=== PATIENT | male | born 1970 | race Caucasian/White ===

== ENCOUNTER 2016-04-22 11:50 | Emergency (ER) | payer SELFPAY ==
[~2016-04-22] VITALS: Wt 100.0 kg
[~2016-04-22 11:50] MED LIST: ALBU8.5H3 INH; AZIT250T94 PO; IBUP-1542 PO
== END 2016-04-22 15:46 | disposition left against medical advice (07) ==
LOC: FTE 11:50
DX: Z53.21 Procedure and treatment not carried out due to patient leaving prior to being seen by health care provider (principal)

== ENCOUNTER 2016-05-07 16:33 | Emergency (ER) | payer MEDICAID ==
[~2016-05-07] VITALS: Wt 103.6 kg
[2016-05-07] MEDS ORDERED: SOD CHLORIDE 0.9% 1,000 ML IV STA (20:15)
[2016-05-07] MEDS ORDERED: ONDANSETRON 4 MG INJ IV STA (20:15)
[2016-05-07] MEDS ORDERED: morphine 4 MG/ML VIAL IV STA (20:15)
[2016-05-07 20:43] VITALS: TEMP 98.4
[2016-05-07 21:08] LABS: ADD SCAN DIFF NO
--- NOTE | 2016-05-07 21:09 | RADRPT ---
PROCEDURE: Portable chest x-ray. CLINICAL INDICATION: Abdominal pain. TECHNIQUE: Portable AP view of the chest. COMPARISON: None. FINDINGS: No pulmonary edema or conolidation is identified. The cardiac silhouette is magnified. No pleural effusion is seen. There is no pneumothorax. There is no pneumoperitoneum. IMPRESSION: 1. No evidence of acute cardiopulmonary disease. 2. No pneumoperitoneum. RPTAT: HTAR .Christopher Villalta MD, MD Date Time Electronically viewed and signed by .Christopher Villalta MD, MD on 05/07/2016 21:08 .R/
[2016-05-07 21:11] LABS: BASOPHIL # 0.1 10^3/ul (0.0-0.1); BASOPHILS % 1.1 % (0.0-2.0); EOSINOPHILS # 0.8 10^3/ul (0.0-0.5); EOSINOPHILS % 9.2 % (0.0-7.0); HEMATOCRIT 43.3 % (42.0-52.0); LYMPHOCYTES # 2.4 10^3/ul (0.8-2.9); LYMPHOCYTES % 28.8 % (15.0-51.0); MEAN CORPUSCULAR HEMOGLOBIN 27.7 pg (29.0-33.0); MEAN CORPUSCULAR HGB CONC 34.6 g/dl (32.0-37.0); MEAN CORPUSCULAR VOLUME 79.9 fl (82.0-101.0); MONOCYTE # 0.6 10^3/ul (0.3-0.9); MONOCYTES % 6.9 % (0.0-11.0); NEUTROPHIL # 4.5 10^3/ul (1.6-7.5); NEUTROPHILS % 53.8 % (39.0-77.0); PLATELET COUNT 342 10^3/UL (140-415); RED BLOOD COUNT 5.42 10^6/ul (4.70-6.10); WHITE BLOOD COUNT 8.4 10^3/ul (4.8-10.8)
[2016-05-07 21:31] LABS: CHLORIDE 102 mmol/L (97-110); SODIUM 141 mmol/L (135-144)
[2016-05-07 21:32] LABS: POTASSIUM 3.3 mmol/L (3.5-5.1)
[2016-05-07 21:34] LABS: ALANINE AMINOTRANSFERASE 41 IU/L (13-69); ALBUMIN/GLOBULIN RATIO 1.37; ALKALINE PHOSPHATASE 98 IU/L (42-121); ANION GAP 14 (8-16); ASPARTATE AMINO TRANSFERASE 26 IU/L (15-46); BLOOD UREA NITROGEN 19 mg/dl (7-20); CALCIUM 9.1 mg/dl (8.4-10.2); CARBON DIOXIDE 28 mmol/L (21-31); CREATININE 0.72 mg/dl (0.61-1.24); GLUCOSE 132 mg/dl (70-220); TOTAL PROTEIN 6.9 g/dl (6.1-8.1)
[2016-05-07 21:51] LABS: TROPONIN-I < 0.012 ng/ml (0.00-0.12)
[2016-05-07 21:52] VITALS: BP 149/107; PULSE 78; RESP 18
[2016-05-07] MEDS ORDERED: IBUP-1542 PO (21:57)
[2016-05-07] MEDS ORDERED: HYD25 PO (21:58)
--- NOTE | 2016-05-07 22:19 | ERD ---
ER Documentation Chief Complaint Date/Time DATE: 05/07/16 TIME: 22:03 Chief Complaint LEFT UPPER BACK PAIN, LEFT CHESTWALL PAIN, LEFT ARM NUMBNESS, ONSET 1 DAY HPI 46-year-old man with a history of hypertension, diabetes, dyslipidemia presents with 3 days of back and chest pain on the left side with paresthesias to the left upper extremity. He denies headache or blurry vision, no weakness in his arms or legs, no slurred speech, no exertional chest pain. He states the pain in the left upper back and left chest is sharp but denies previous episodes. He denies cough, no fevers or chills, no weight loss, no calf or leg swelling. ROS All systems reviewed and are negative except as per history of present illness. Medications Home Meds Active Scripts Hydrochlorothiazide* (Hydrochlorothiazide*) 25 Mg Tab, 50 MG PO DAILY, #30 TAB Prov:KJ XAVIER MD 05/07/16 Ibuprofen* (Ibuprofen*) 600 Mg Tablet, 600 MG PO Q8 for PAIN AND/OR INFLAMMATION , #30 TAB Prov:KJ XAVIER MD 05/07/16 Ibuprofen* (Motrin*) 600 Mg Tab, 600 MG PO Q6, #30 TAB Prov:LAURA PITTMAN PA-C 10/25/15 Azithromycin* (Zithromax*) 250 Mg Tablet, 250 MG PO .ZPACK DIRECTED, #6 TAB TAKE 500 MG (2 TABS) THE FIRST DAY THEN 250 MG (1 TAB) DAYS 2-5 Prov:LAURA PITTMAN PA-C 10/25/15 Albuterol Sulfate* (Proair HFA*) 8.5 Gm Hfa.aer.ad, 2 PUFF INH Q4, #1 INHALER Prov:LAURA PITTMAN PA-C 10/25/15 Allergies Allergies: Coded Allergies: No Known Allergy (Unverified , 12/02/14) PMhx/Soc Hypertension, diabetes mellitus, dyslipidemia, asthma History of Surgery: Yes (OPEN APPY) Anesthesia Reaction: No Hx Neurological Disorder: No Hx Respiratory Disorders: No Hx Cardiac Disorders: Yes (HTN) Hx Psychiatric Problems: No Hx Miscellaneous Medical Probl: Yes (ASTHMA) Hx Alcohol Use: No Hx Substance Use: No Hx Tobacco Use: No Smoking Status: Never smoker FmHx Family History: diabetes Physical Exam Vitals Vital Signs Date Time Temp Pulse Resp B/P Pulse Ox O2 Delivery O2 Flow Rate FiO2 05/07/16 21:52 78 18 149/107 100 Room Air 05/07/16 20:43 98.4 72 20 154/99 98 Room Air 05/07/16 16:45 97.2 101 18 171/93 98 Physical Exam GENERAL: Well-developed, well-nourished, well-hydrated, in no apparent distress , looks nontoxic in appearance HEENT: Moist mucous membranes, pink conjunctiva, no cervical spine tenderness or step-off deformities, no goiter, no jaundice or icterus, extraocular movements intact without pain. No submandibular induration, and no pharyngeal erythema NEURO: Alert and oriented 3, cranial nerves II through XII intact bilaterally, pupils equal round reactive to light, no focal deficits or facial asymmetry, sensation intact distally Strength 5/5 in upper and lower extremities bilaterally CARDIAC: Regular rate and rhythm, no murmurs rubs or gallops LUNGS: Clear bilaterally no wheezing crackles or stridor ABDOMEN: Soft nontender, no guarding, no rigidity, no rebound, no psoas sign no obturator sign. Normoactive bowel sounds SKIN: Warm and dry to touch, no abrasions, contusions, or hematomas, no lacerations, no ecchymosis, no target lesions, and without ulcers EXTREMITIES: No clubbing cyanosis or edema, calves are bilaterally symmetrical, no Homans sign, no popliteal cord sign. Distal pulses equal and bilateral PSYCH: Normal affect without agitation or irritability Result Diagram: 05/07/16204905/07/162049 Results 24 hrs Laboratory Tests Test 05/07/16 20:50 Alanine Aminotransferase (ALT/SGPT) 41IU/L Albumin 4.0g/dl Albumin/Globulin Ratio 1.37 Alkaline Phosphatase 98IU/L Anion Gap 14 Aspartate Amino Transf (AST/SGOT) 26IU/L Basophils # 0.110^3/ul Basophils % 1.1% Blood Urea Nitrogen 19mg/dl Calcium Level 9.1mg/dl Carbon Dioxide Level 28mmol/L Chloride Level 102mmol/L Creatinine 0.72mg/dl Direct Bilirubin 0.00mg/dl Eosinophils # 0.810^3/ul Eosinophils % 9.2% Globulin 2.90g/dl Glucose Level 132mg/dl Hematocrit 43.3% Hemoglobin 15.0g/dl Indirect Bilirubin 0.0mg/dl Lipase 102U/L Lymphocytes # 2.410^3/ul Lymphocytes % 28.8% Mean Corpuscular Hemoglobin 27.7pg Mean Corpuscular Hemoglobin Concent 34.6g/dl Mean Corpuscular Volume 79.9fl Mean Platelet Volume 10.0fl Monocytes # 0.610^3/ul Monocytes % 6.9% Neutrophils # 4.510^3/ul Neutrophils % 53.8% Nucleated Red Blood Cells # 0.010^3/ul Nucleated Red Blood Cells % 0.0/100WBC Platelet Count 97362^3/UL Potassium Level 3.3mmol/L Red Blood Count 5.4210^6/ul Red Cell Distribution Width 13.0% Sodium Level 141mmol/L Total Bilirubin 0.0mg/dl Total Protein 6.9g/dl Troponin I < 0.012ng/ml White Blood Count 8.410^3/ul Current Medications Medications (Trade) Dose Ordered Sig/Pratik Route PRN Reason Start Time Stop Time Status Last Admin Dose Admin Sodium Chloride (NS) 1,000 ml @ 1,000 mls/hr Q1H STAT IV 05/07/16 20:15 05/07/16 21:14 DC 05/07/16 21:09 Morphine Sulfate (morphine) 4 mg ONCE STAT IV 05/07/16 20:15 05/07/16 20:16 DC 05/07/16 21:09 Ondansetron HCl (Zofran Inj) 4 mg ONCE STAT IV 05/07/16 20:15 05/07/16 20:16 DC 05/07/16 21:09 Clonidine (Catapres) 0.1 mg ONCE ONCE PO 05/07/16 22:00 05/07/16 22:01 DC 05/07/16 21:57 Procedures/MDM IV line was established patient was placed on shark biologist rhythm strip revealed a sinus rhythm at about 100 bpm with upright P and T waves. Patient was afebrile. EKG performed, read by me revealed a normal sinus rhythm at 97 bpm, normal axis , narrow QRS complex, no concerning ST elevations or depressions noted. No PA interval depression. One AP view of the chest performed, read by me reveals no acute infiltrates, normal mediastinum, sharp costophrenic and cardiac borders, no air under the diaphragm. Otherwise unremarkable chest x-ray. I administered 1 L normal saline intravenously, morphine 4 mg IV, Zofran 4 mg IV with good effect. Pain resolved. Patient has no complaints of paresthesias at this time. For continued hypertension I administered clonidine 0.1 mg p.o. with good effect. CBC and electrolytes are normal, liver function tests are normal, troponin was negative. Differential diagnoses considered, included but not limited to acute coronary syndrome, acute pericarditis, pulmonary embolism, aortic dissection, abdominal aortic aneurysm, sepsis, stroke, meningitis, encephalitis, pneumonia, appendicitis, cholecystitis, bowel obstruction, pyelonephritis, nephrolithiasis , cystitis, as well as metabolic, hematologic, and electrolyte abnormalities. As well as abscess, cellulitis, fractures, and dislocations. Patient feels much better at this time, and vital signs are normal, symptoms have improved. I did give strict instructions to return to the ED if symptoms continue or worsen, patient will otherwise follow-up with primary care physician. Patient understood instructions and agreed to plan. Departure Diagnosis: Primary Impression: Hypertension Hypertension type: essential hypertension Qualified Code: I10 - Essential hypertension Additional Impression: Chest pain Chest pain type: unspecified Qualified Code: R07.9 - Chest pain, unspecified type Condition: Good Patient Instructions: High Blood Pressure (Hypertension), Chest Pain, Uncertain Cause KJ XAVIER MD May 07, 2016 22:14
== END 2016-05-07 22:39 | disposition home or self-care (01) ==
LOC: E/R 16:33
DX: I10 Essential (primary) hypertension (principal); J45.909 Unspecified asthma, uncomplicated; E11.9 Type 2 diabetes mellitus without complications
CPT/HCPCS: 36415; 71010; 80053; 83690; 84484; 85025; 93005; 96374; 96375; J2270; J2405; J7030; Z7502; Z7610

== ENCOUNTER 2016-12-28 15:55 | Emergency (ER) | payer MEDICAID ==
[~2016-12-28] VITALS: Ht 172.7 cm; Wt 102.0 kg
[~2016-12-28 15:55] MED LIST changes: +HYDR25TA6 PO
[2016-12-28 15:58] VITALS: Ht 172.7 cm; Wt 102.0 kg
--- NOTE | 2016-12-28 16:49 | ERD ---
ER Documentation Chief Complaint Chief Complaint left toe nail possible infection HPI left great toe pain, pt is a DM reports thta he hit his toe on a pice of furniture 2 dats ago. now toe is red and painful, pain with AMB ROS All systems reviewed and are negative except as per history of present illness. Medications Home Meds Active Scripts Hydrochlorothiazide* (Hydrochlorothiazide*) 25 Mg Tab, 50 MG PO DAILY, #30 TAB Prov:KJ XAVIER MD 05/07/16 Ibuprofen* (Ibuprofen*) 600 Mg Tablet, 600 MG PO Q8 for PAIN AND/OR INFLAMMATION , #30 TAB Prov:KJ XAVIER MD 05/07/16 Ibuprofen* (Motrin*) 600 Mg Tab, 600 MG PO Q6, #30 TAB Prov:LAURA PITTMAN PA-C 10/25/15 Azithromycin* (Zithromax*) 250 Mg Tablet, 250 MG PO .ZPACK DIRECTED, #6 TAB TAKE 500 MG (2 TABS) THE FIRST DAY THEN 250 MG (1 TAB) DAYS 2-5 Prov:LAURA PITTMAN PA-C 10/25/15 Albuterol Sulfate* (Proair HFA*) 8.5 Gm Hfa.aer.ad, 2 PUFF INH Q4, #1 INHALER Prov:LAURA PITTMAN PA-C 10/25/15 Allergies Allergies: Coded Allergies: No Known Allergy (Unverified , 12/02/14) PMhx/Soc History of Surgery: Yes (OPEN APPY) Anesthesia Reaction: No Hx Neurological Disorder: No Hx Respiratory Disorders: No Hx Cardiac Disorders: Yes (HTN) Hx Psychiatric Problems: No Hx Miscellaneous Medical Probl: Yes (ASTHMA) Hx Alcohol Use: No Hx Substance Use: No Hx Tobacco Use: No Physical Exam Vitals Vital Signs Date Time Temp Pulse Resp B/P Pulse Ox O2 Delivery O2 Flow Rate FiO2 12/28/16 15:58 98.6 70 18 160/88 99 Physical Exam Const: Bahamian-speaking well nourished well appearing 46-year-old male in no acute distress Head: Eyes: ENT: Neck: . Resp: Cardio: Abd: Skin: No petechiae or rashes Back: Lower Extremity -left Skin: Left great toe presents with the nail trimmed short, purple and a half septic staining nail bed and scan, left lateral erythema, edema, and tenderness along skin fold, no discharge. No evidence of subungual hematoma Compartments: Soft Motor: Full active range of motion hip/knee/ankle/foot Sensation: Intact to light touch. Superior, inferior, lateral surfaces. Bones: [Nontender pelvis/knee/proximal tibia/ malleoli/foot Joints: No effusion or laxity Pulses/Perfusion: 2+ DP, Capillary refill < 2 seconds Neur: Awake and alert Psych: Normal Mood and Affect Results 24 hrs Current Medications Medications (Trade) Dose Ordered Sig/Pratik Route PRN Reason Start Time Stop Time Status Last Admin Dose Admin Ibuprofen (Motrin) 600 mg ONCE ONCE PO 12/28/16 17:00 12/28/16 17:01 DC 12/28/16 17:11 Procedures/MDM PROCEDURE: XR left foot. CLINICAL INDICATION: Post traumatic great toe pain TECHNIQUE: AP, lateral and oblique views of the left foot were obtained. COMPARISON: None. FINDINGS: Mineralization is within normal limits. No fracture or osseous lesion is identified. There is no evidence for dislocation. The metatarsophalangeal, interphalangeal, and mid tarsal joint spaces are preserved. The soft tissues are unremarkable. There is no evidence for a radiopaque foreign body. IMPRESSION: Unremarkable left foot series. Electronically viewed and signed by Herman Briseno Physician on 12/28/2016 17:54 This 46-year-old male patient presents to emergency department for evaluation of a left great toe injury 2 days ago, patient reports that he kicked a piece of furniture, he has treated at home with antiseptic purple in color that remains on the skin, patient reports that pain and swelling along lateral aspect of great toe started yesterday without discharge patient is concerned he is a diabetic, emergency room course includes history and physical exam, no obvious abscess or bleeding noted at this time. Radiographic images is unremarkable for fracture, dislocation or soft tissue abnormality plan to provide wound care, Neosporin to nail fold, bulky dressing, discharge patient home with dicloxacillin 500 mg every 6 hours 7 days, Neosporin, warm water foot soaks. Follow-up with primary care physician in 48 hours for wound reevaluation. Return to emergency department for increased redness, swelling, fever or chills. Patient is stable with no new complaints during ER course, clinically there is no current evidence to suggest Leigh, compartment syndrome , Perdomo-Daljit syndrome, fracture or any other emergent condition appearing to require further evaluation or hospitalization. I feel the patient is stable for discharge at this time. I have discussed results, examination findings, the treatment plan with the patient and family present prior to discharge. Indications for emergent reevaluation, side effects of medication were also discussed. All questions were answered. Patient verbalizes understanding and agrees with plan of care. Departure Diagnosis: Primary Impression: Perionychia of toe Laterality: left Qualified Code: L03.032 - Paronychia of toe of left foot Patient Instructions: Paronychia [facility] Additional Instructions: Thank you for for coming to [facility] for your care today. Please ask your nurse or provider if you have questions about your care today and do not leave until all your questions have been answered. Please use any medications given as directed and follow-up with your doctor (or the doctor you were referred to) in the next 2-3 days. If you do not have a primary care doctor you may follow up at the [facility] [place] (listed below). You may also use motrin and tylenol as needed for fever and/or pain unless instructed otherwise by your provider or nurse. Indications for more urgent follow-up have been discussed, but you may return to the Emergency Department at ANY time for any worrisome or worsening symptoms. If you have abdominal pain, please know that no test or exam you received is perfect and you should follow up within 8 hours for continued pain. If you had any imaging studies today, such as an X-Ray or CT Scan, these studies will be reviewed later by a radiologist. You will be called if there are important findings that were not identified today, so make sure the contact information you provided at registration is correct. If you received any narcotic pain control medicine today, such as Vicodin, Morphine or Dilaudid, your coordination and judgment may be affected for a number of hours. Please do not drive or operate heavy machinery, and you may want someone to assist you at home. If you were given a prescription for narcotic medication, be aware that it is very addictive- use sparingly and only if necessary. CHRISTINA RAMIRES Dec 28, 2016 16:49
[2016-12-28] MEDS ORDERED: IBUPROFEN 600 MG TAB PO ONE (17:00)
--- NOTE | 2016-12-28 17:55 | RADRPT ---
PROCEDURE: XR left foot. CLINICAL INDICATION: Post traumatic great toe pain TECHNIQUE: AP, lateral and oblique views of the left foot were obtained. COMPARISON: None. FINDINGS: Mineralization is within normal limits. No fracture or osseous lesion is identified. There is no e vidence for dislocation. The metatarsophalangeal, interphalangeal, and mid tarsal joint spaces are preserved. The soft tissues are unremarkable. There is no evidence for a radiopaque foreign body. IMPRESSION: Unremarkable left foot series. RPTAT:HJJR Physician Aurea Date Time Electronically viewed and signed by Physician Aurea on 12/28/2016 17:54 /
[2016-12-28] MEDS ORDERED: [UNRECOGNIZED DRUG - CODE] PO (18:23)
[2016-12-28] MEDS ORDERED: IBUP400T22 PO (18:24)
== END 2016-12-28 18:48 | disposition home or self-care (01) ==
LOC: FTE 15:55
DX: L03.032 Cellulitis of left toe (principal); I10 Essential (primary) hypertension; J45.909 Unspecified asthma, uncomplicated
CPT/HCPCS: 73630; Z7502; Z7610

== ENCOUNTER 2017-03-28 10:26 | Emergency (ER) | END 2017-03-28 14:10 | disposition home or self-care (01) ==

== ENCOUNTER 2018-07-01 14:10 | Inpatient (IN) | payer MEDICAID ==
[~2018-07-01] VITALS: Ht 170.2 cm; Wt 105.9 kg
[~2018-07-01 14:10] MED LIST changes: -ALBU8.5H3 INH; +ALBU8.5H8 INH; +AZIT250T PO; -AZIT250T94 PO; +IBUP-1544 PO; +IBUP-1561 PO; +OSEL75CA23 PO; +PRED20TA PO; +[UNRECOGNIZED DRUG - CODE] PO
--- NOTE | 2018-07-01 14:18 | ERD ---
ER Documentation Chief Complaint Chief Complaint aloc HPI The patient is a 48-year-old male, presenting to the ER because of altered level consciousness for more than 24hours. He was last seen normal about 2 days ago according to the family. He is currently taking amoxicillin for acute cystitis for the last few days. He is awake but very confused. The history is very limited due to his condition, mostly obtained from the EMS Past medical history: Diabetes mellitus, hypertension, dyslipidemia Past surgical history: Appendectomy ROS All systems reviewed and are negative except as per history of present illness. Medications Home Meds Reported Medications Amoxicillin* (Amoxil*) 500 Mg Tablet, 500 MG PO Q8, TAB 07/01/18 Aspirin* (Aspirin* Chew) 81 Mg Tab.chew, 81 MG PO DAILY, TAB.CHEW 07/01/18 Allergies Allergies: Coded Allergies: No Known Allergy (Unverified , 07/01/18) Physical Exam Vitals Vital Signs Date Temp Pulse Resp B/P (MAP) Pulse Ox O2 O2 Flow FiO2 Time Delivery Rate 07/01/18 100.5 98 17 156/103 100 Room Air 15:37 (120) 07/01/18 99.9 96 18 156/95 97 14:19 (115) Physical Exam Const: No acute distress. Head: Atraumatic. Eyes: Normal Conjunctiva. ENT: Normal External Ears, Nose and Mouth. Neck: Full range of motion. No meningismus. Resp: Clear to auscultation bilaterally. Cardio: Regular rate and rhythm. Abd: Soft, non distended, normal bowel sounds, moderate/diffuse ab dominal tenderness Skin: No petechiae or rashes. Back: No midline or flank tenderness. Ext: No cyanosis, or edema. Neur: Awake, only knows his name. Limited due to his condition Psych: Unable to perform due to his condition Result Diagram: 07/01/18 1435 07/01/18 1435 Results 24 hrs Laboratory Tests Test 07/01/18 14:24 07/01/18 14:33 07/01/18 14:35 07/01/18 15:22 Bedside Glucose 133 mg/dL POC Venous 1.7 mmol/L Lactate White Blood Count 19.3 10^3/ul Red Blood Count 5.75 10^6/ul Hemoglobin 15.4 g/dl Hematocrit 45.8 % Mean Corpuscular 79.7 fl Volume Mean Corpuscular 26.8 pg Hemoglobin Mean Corpuscular 33.6 g/dl Hemoglobin Concen t Red Cell 13.3 % Distribution Width Platelet Count 318 10^3/UL Mean Platelet 10.1 fl Volume Immature 0.600 % Granulocytes % Neutrophils % 89.2 % Lymphocytes % 4.1 % Monocytes % 5.4 % Eosinophils % 0.2 % Basophils % 0.5 % Nucleated Red 0.0 /100WBC Blood Cells % Immature 0.110 10^3/ul Granulocytes # Neutrophils # 17.2 10^3/ul Lymphocytes # 0.8 10^3/ul Monocytes # 1.1 10^3/ul Eosinophils # 0.0 10^3/ul Basophils # 0.1 10^3/ul Nucleated Red 0.0 10^3/ul Blood Cells # Prothrombin Time 12.3 Sec Prothrombin Time 1.0 Ratio INR International 0.90 Normalized Ratio Activated 28.9 Sec Partial Thrombopl ast Time Sodium Level 135 mmol/L Potassium Level 3.6 mmol/L Chloride Level 101 mmol/L Carbon Dioxide 23 mmol/L Level Anion Gap 11 Blood Urea 10 mg/dl Nitrogen Creatinine 0.56 mg/dl Est Glomerular > 60 mL/min Filtrat Rate mL/min Glucose Level 137 mg/dl Calcium Level 9.0 mg/dl Total Bilirubin 0.6 mg/dl Direct Bilirubin 0.00 mg/dl Indirect 0.6 mg/dl Bilirubin Aspartate Amino 22 IU/L Transf (AST/SGOT) Alanine 24 IU/L Aminotransferase (ALT/SGPT) Alkaline 112 IU/L Phosphatase Creatine Kinase 98 IU/L Troponin I < 0.012 ng/ml Total Protein 7.7 g/dl Albumin 4.2 g/dl Globulin 3.50 g/dl Albumin/Globulin 1.20 Ratio Lipase 125 U/L Ethyl Alcohol < 10.0 mg/dl Level Urine Color YELLOW Urine Clarity CLEAR Urine pH 7.0 Urine Specific 1.016 [place] Urine Ketones NEGATIVE mg/dL Urine Nitrite NEGATIVE mg/dL Urine Bilirubin NEGATIVE mg/dL Urine NEGATIVE mg/dL Urobilinogen Urine Leukocyte TRACE Raj/ul Esterase Urine Microscopic 1 /HPF RBC Urine Microscopic 4 /HPF WBC Urine Hemoglobin 1+ mg/dL Urine Glucose NEGATIVE mg/dL Urine Total 2+ mg/dl Protein Urine Opiates Negative Screen Urine Negative Barbiturates Urine Negative Amphetamines Screen Urine Negative Benzodiazepines Screen Urine Cocaine Negative Screen Urine Positive Cannabinoids Test 07/01/18 15:41 07/01/18 16:55 07/01/18 17:21 Bedside Urine pH 7.0 (LAB) Bedside Urine 3+ Protein (LAB) Bedside Urine Negative Glucose (UA) Bedside Urine Negative Ketones (LAB) Bedside Urine Trace-lysed Blood Bedside Urine Negative Nitrite (LAB) Bedside Urine Trace Leukocyte Esteras e (L Lactic Acid Level 1.5 mmol/L Ammonia 24 umol/l Hepatitis B Pending Surface Antigen Hepatitis B Core Pending Total Antibody Hepatitis C Pending Antibody Current Medications Medications Dose Sig/Pratik Start Time Status Last (Trade) Ordered Route PRN Stop Time Admin Dose Reason Admin Ketorolac 30 mg ONCE STAT 07/01/18 DC 07/01/18 Tromethamine IV 15:23 15:39 (Toradol) 07/01/18 15:30 Piperacillin 100 ml @ ONCE ONCE 07/01/18 DC 07/01/18 Sod/ 200 mls/hr IVPB 16:30 16:40 Tazobactam 07/01/18 16:59 Sod IV Flush 3 ml PER 07/01/18 (NS 3 ml) PROTOCOL IV 16:30 Ondansetron 4 mg Q6H PRN 07/01/18 HCl (Zofran IV 16:30 Inj) NAUSEA/VOMITI NG 650 mg Q6H PRN 07/01/18 Acetaminophen PO .PAIN 1-3 16:30 (Tylenol OR TEMP Tab) 1 tab Q6H PRN 07/01/18 Acetaminophen PO .PAIN 4-6 16:30 / Hydrocodone Bitart ([place] (5/325)) 150 ml @ Q24H IVPB 07/01/18 Levofloxacin/ 100 mls/hr 17:00 Dextrose Sodium 1,000 ml @ Q10H IV 07/01/18 Chloride 100 mls/hr 17:00 Labetalol 10 mg Q4H PRN 07/01/18 HCl IV sbp>160 17:00 (Labetalol) Procedures/[place] [id number] Radiology Main Line: [phone] DIAGNOSTIC IMAGING REPORT Patient: IWLLIAM HEAD : 1970 Age: 48 Sex: M MR #: [id number] DOS: 07/01/18 1420 Ordering MD: HAMIDA ATWOOD MD Location: E/R Room/Bed: PROCEDURE: CT Abdomen and Pelvis without contrast. CLINICAL INDICATION: Abdominal pain. TECHNIQUE: CT scan of the abdomen and pelvis without contrast was performed on a multidetector high-resolution CT scanner. The patient was scanned without intravenous contrast. Coronal and sagittal reformatted images were obtained from the axial source images. Images were reviewed on a high-resolution PACS workstation. One or more of the following dose reduction techniques were used: Automated exposure control, adjustment of the mA and/or kV according to patient size, use of iterative reconstruction technique. DICOM images are available. The total exam CTDI equals 22.48 mGy and the total exam DLP equals 1438.74 mGy- cm. COMPARISON: None available. FINDINGS: CT ABDOMEN: Visualized lung bases: No significant infiltrate or pleural/pericardial effusion. The heart size is normal. Liver: The liver is enlarged measuring 22 cm and demonstrates diffusely decreased attenuation. No evidence of solid hepatic mass or intrahepatic ductal dilatation. Gallbladder and bile ducts: Unremarkable. Spleen: Unremarkable. Pancreas: Unremarkable. No ductal dilatation, mass, or peripancreatic stranding. Adrenal glands: Unremarkable. Kidneys: No hydronephrosis, stones, or solid lesions seen. Vasculature: No abdominal aortic aneurysm. Negative IVC. Lymph nodes: No adenopathy. GI: There is no evidence of inflamed appendix. Negative terminal ileum and rectum. No evidence of obstruction. Negative sigmoid colon. Peritoneal cavity: There is a small fat-containing umbilical hernia. No free fluid or free air. CT PELVIS: : Normal appearing bladder, distal ureters and ureterovesiculal junctions. The pelvic organs are unremarkable. Peritoneal cavity: No free fluid or free air. Lymph nodes: No adenopathy. Osseous structures: No acute osseous injury. No lytic or blastic lesions. Other: There are small bilateral fat containing inguinal hernias. IMPRESSION: 1. No evidence of acute abdominopelvic inflammatory process, mass or lymphadenopathy. 2. Hepatomegaly and hepatic steatosis. 3. Minimal aortic atherosclerosis. 4. Small fat-containing umbilical and bilateral inguinal hernias. RPTAT: JJ .Lyle Gonzales MD, MD Date Time Electronically viewed and signed by .Lyle Gonzales MD, MD on 07/01/2018 15:19 .A/ CC: HAMIDA ATWOOD MD [id number] [place] [address] Radiology Main Line: [phone] DIAGNOSTIC IMAGING REPORT Patient: WILLIAM HEAD : 1970 Age: 48 Sex: M MR #: [id number] DOS: 07/01/18 1420 Ordering MD: HAMIDA ATWOOD MD Location: E/R Room/Bed: PROCEDURE: CT brain without contrast CLINICAL INDICATION: Sepsis. Head pain TECHNIQUE: CT of the brain without contrast was performed on a multidetector CT scanner, with multiplanar reformats. One or more of the following dose reduction techniques were used: Automated exposure control, adjustment in mA and / or kV according to patient size, use of iterative reconstructive technique. CTDIvol = 38 mGy; DLP = 634 mGy-cm. DICOM images are available. COMPARISON: None available FINDINGS: No acute intracranial hemorrhage is identified. No extra-axial fluid collection is seen. There is no mass effect. No midline shift is identified. The ventricles and sulci are within normal limits for size and configuration. The density of the brain appears unremarkable. Mason-white junctions are preserved. Calvarium and skull base are intact. Mastoid air cells and imaged paranasal sinuses grossly clear. IMPRESSION: No acute intracranial pathology identified. RPTAT: VV .Thierry Mccartney MD, MD Date Time Electronically viewed and signed by .Thierry Mccartney MD, MD on 07/01/2018 15:06 .O/ CC: HAMIDA ATWOOD MD [phone] [place] [address] Radiology Main Line: [phone] DIAGNOSTIC IMAGING REPORT Patient: WILLIAM HEAD : 1970 Age: 48 Sex: M MR #: [id number] DOS: 07/01/18 1420 Ordering MD: HAMIDA ATWOOD MD Location: E/R Room/Bed: PROCEDURE: Chest xray. CLINICAL INDICATION: Possible sepsis TECHNIQUE: A portable semiupright AP view of the chest was obtained. COMPARISON: None. FINDINGS: The cardiac silhouette is mildly enlarged. Lung volumes are low with associated bronchovascular crowding. No focal opacity, pleural effusion, or pneumothorax is identified. The skeletal structures and soft tissues are unremarkable. IMPRESSION: Mild cardiomegaly. Low lung volumes. RPTAT:PP .Bella Love MD, MD Date Time Electronically viewed and signed by .Bella Love MD, MD on 07/01/2018 14:54 .K/ CC: HAMIDA ATWOOD MD [phone] MEDICAL MAKING DECISION: The patient is a 48-year-old male, presenting with acute encephalopathy, acute abdominal pain of unclear etiology, acute leukocytosis, cannabinoid abuse. He was treated with Toradol 30 mg IV for his abdominal pain and Zosyn IV empirically The differential diagnoses considered include but are not limited to anxiety attack, panic attack, substance abuse, cholelithiasis, cholecystitis, choled ocholithiasis, cholangitis, pancreatitis, hepatitis, gastritis, peptic ulcer disease, gastric ulcer, appendicitis, cystitis, diverticulitis, partial small bowel obstruction. Departure Diagnosis: Primary Impression: Encephalopathy acute Additional Impressions: Abdominal pain Cannabis abuse Condition: Stable Comments I discussed the findings with the patient. I discussed the patient with Dr Green at 4:25 p , who was made aware of the lab, the treatment, the patient co ndition. The patient is admitted to [facility] Disclaimer: Inadvertent spelling and grammatical errors are likely due to EHR/dictation software use and do not reflect on the overall quality of patient care. Also, please note that the electronic time recorded on this note does not necessarily reflect the actual time of the patient encounter. HAMIDA ATWOOD MD Jul 01, 2018 14:18
[2018-07-01] MEDS ORDERED: AMOX500T PO (14:47)
[2018-07-01] MEDS ORDERED: ASPI-903 PO (14:47)
[2018-07-01] MEDS ORDERED: KETOROLAC 30 MG INJ IV STA (15:23)
[2018-07-01] MEDS ORDERED: PIPER-TAZO 3.375 GM IV (PMX) 100 ML IVPB ONE (16:30)
[2018-07-01] MEDS ORDERED: ONDANSETRON 4 MG INJ IV PRN (16:30)
[2018-07-01] MEDS ORDERED: NACL 0.9% 3 ML SYG IV SCH (16:30)
[2018-07-01] MEDS ORDERED: LABETALOL HCL 20MG INJ IV PRN (17:00)
--- NOTE | 2018-07-01 17:06 | HP ---
Date/Time of Note Date/Time of Note DATE: 07/01/18 TIME: 17:06 Assessment/Plan VTE Prophylaxis Pharmacological prophylaxis: other Lines/Catheters IV [facility] Saline Lock Assessment/Plan Hospital Course Patient is a male with a questionable past medical history of diabetes and elevated cholesterol who presents to [facility] brought in by family for altered mental status. According to EMS they arrived after 911 was called by patient's and patient was find altered and slightly arousable. Patient did not receive any new medical attention however when they placed a nasal trumpet in the ED, patient spontaneously woke up and was alert and oriented x4. Patient currently right now is able to tell me entire story however he does not know what he was altered for the past 2 days. Patient was able to say that for the past 3-4 days he has had suprapubic pain as well as difficulty urinating. Patient states that he would urinate a little bit and then it would clamp up. Patient states that this is never happened before. Patient states that at this time there was also a mild to moderate umbilical abdominal pain as well as a right flank and left flank pain but worse on the right. Currently patient states that this pain is still there however after getting a Bartholomew catheter placed in the ED patient's suprapubic pain has slightly resolved. Of note patient did take an old prescription of amoxicillin for the past day. Patient states that he has chronic headaches for many years and he has some lower extremity neuropathy that is also chronic however he is not taking any medications for his questionable diabetes or high cholesterol. Patient denies chest pain, shortness of breath, dizziness, blurry vision, nausea, vomiting. Objective Physical exam General: Patient is laying in bed and answers questions appropriately Mentation: Patient is alert and oriented 4, Head: Normocephalic atraumatic Eyes: EOMI, pupils reactive to light Neck: Supple, nontender, midline Respiratory: Clear to auscultation bilaterally Cardiovascular: regular rate, no obvious murmurs Gastrointestinal: Tender to palpation, worse in the suprapubic area and lower quadrants to palpation, bowel sounds heard. Neurological: Moves all extremities spontaneously Musculoskeletal: Moderate right flank pain as well as mild left flank pain Assessment and plan Urinary tract infection with possible pyelonephritis -UA in-house is not conclusive for UTI does show trace leukocytes however, patient was taking an oral antibiotic in the outpatient setting from an old prescription and therefore may be changing the results of the UA -Patient symptoms of suprapubic pain, urinary retention and other clinical symptoms point towards UTI cause with possible pyelonephritis -IV Levaquin -Normal saline Sepsis -Secondary to likely UTI and possible pyelonephritis -IV fluids -Blood cultures -Lactic acid 1.7 -IV antibiotic Abdominal pain with flank pain -Accompanied with flank pain as well, likely secondary to above UTI possible pyelonephritis -CT abdomen pelvis negative for acute intra-abdominal issues, may be sequelae f rom UTI and possible pyelonephritis -Patient does have an enlarged liver however does not show any issues with liver labs, hepatitis panel pending -If abdominal pain continues after treatment for pyelonephritis and UTI, will consider repeat imaging, however pain appears mild for now, continue IV ant ibiotics, IV fluids, Urinary retention -Likely secondary to above UTI Bartholomew catheter -We will attempt to remove in a day or 2. Acute encephalopathy -Likely secondary to above UTI and sepsis -Patient now alert and oriented x4 -CT head negative -MRI brain pending -Ammonia pending -Patient denies taking any drugs or alcohol, however cannabinoids is positive in his urine tox screen Questionable diabetes and high cholesterol -Patient states that he has been told that he has issues with this in the past, will get A1c as well as lipid panel Peripheral neuropathy -Patient has had this for many years, was told this was a complication from his diabetes, follow-up with A1c Chronic headaches -Patient has been struggling with this for many years, however patient's blood pressure is elevated, possibly blood pressure related however will need to control blood pressure and pain before attributing headaches to blood pressure -We will monitor for now -MRI pending -CT head negative for acute issues Aspirin use -Patient unknown why he started a baby aspirin, no history of WI or CVA Disposition -Patient's presentation is mildly abnormal however the clinical picture does point towards UTI versus pyelonephritis causing his altered mental status. Continue IV fluids and antibiotics for now and follow-up with MRI of the brain. Result Diagram: 07/01/18 1435 07/01/18 1435 Results 24hrs Laboratory Tests Test 07/01/18 14:24 07/01/18 14:33 07/01/18 14:35 07/01/18 15:22 Bedside Glucose 133 POC Venous Lactate 1.7 White Blood Count 19.3 H Red Blood Count 5.75 Hemoglobin 15.4 Hematocrit 45.8 Mean Corpuscular 79.7 L Volume Mean Corpuscular 26.8 L Hemoglobin Mean Corpuscular 33.6 Hemoglobin Concent Red Cell 13.3 Distribution Width Platelet Count 318 Mean Platelet 10.1 Volume Immature 0.600 H Granulocytes % Neutrophils % 89.2 H Lymphocytes % 4.1 L Monocytes % 5.4 Eosinophils % 0.2 Basophils % 0.5 Nucleated Red Blood 0.0 Cells % Immature 0.110 H Granulocytes # Neutrophils # 17.2 H Lymphocytes # 0.8 Monocytes # 1.1 H Eosinophils # 0.0 Basophils # 0.1 Nucleated Red Blood 0.0 Cells # Prothrombin Time 12.3 Prothrombin Time 1.0 Ratio INR International 0.90 Normalized Ratio Activated 28.9 Partial Thromboplas t Time Sodium Level 135 Potassium Level 3.6 Chloride Level 101 Carbon Dioxide 23 Level Anion Gap 11 Blood Urea Nitrogen 10 Creatinine 0.56 L Est Glomerular > 60 Filtrat Rate mL/min Glucose Level 137 Calcium Level 9.0 Total Bilirubin 0.6 Direct Bilirubin 0.00 Indirect Bilirubin 0.6 Aspartate Amino 22 Transf (AST/SGOT) Alanine 24 Aminotransferase (A LT/SGPT) Alkaline 112 Phosphatase Creatine Kinase 98 Troponin I < 0.012 Total Protein 7.7 Albumin 4.2 Globulin 3.50 H Albumin/Globulin 1.20 Ratio Lipase 125 Ethyl Alcohol Level < 10.0 H Urine Color YELLOW Urine Clarity CLEAR Urine pH 7.0 Urine Specific 1.016 [place] Urine Ketones NEGATIVE Urine Nitrite NEGATIVE Urine Bilirubin NEGATIVE Urine Urobilinogen NEGATIVE Urine Leukocyte TRACE A Esterase Urine Microscopic 1 RBC Urine Microscopic 4 WBC Urine Hemoglobin 1+ H Urine Glucose NEGATIVE Urine Total Protein 2+ H Urine Opiates Negative Screen Urine Barbiturates Negative Urine Amphetamines Negative Screen Urine Negative Benzodiazepines Screen Urine Cocaine Negative Screen Urine Cannabinoids Positive Test 07/01/18 15:41 Bedside Urine pH 7.0 (LAB) Bedside Urine 3+ H Protein (LAB) Bedside Urine Negative Glucose (UA) Bedside Urine Negative Ketones (LAB) Bedside Urine Blood Trace-lysed H Bedside Urine Negative Nitrite (LAB) Bedside Urine Trace H Leukocyte Esterase (L HPI/ROS Admit Date/Time Admit Date/Time PMH/Family/Social Past Medical History Medications Current Medications IV Flush (NS 3 ml) 3 ml PER PROTOCOL IV ; Start 07/01/18 at 16:30 Ondansetron HCl (Zofran Inj) 4 mg Q6H PRN IV NAUSEA/VOMITING; Start 07/01/18 at 16:30 Acetaminophen (Tylenol Tab) 650 mg Q6H PRN PO .PAIN 1-3 OR TEMP; Start 07/01/18 at 16:30 Acetaminophen/ Hydrocodone Bitart ([place] (5/325)) 1 tab Q6H PRN PO .PAIN 4-6; Start 07/01/18 at 16:30 Levofloxacin/ Dextrose 150 ml @ 100 mls/hr Q24H IVPB ; Start 07/01/18 at 17:00; Status UNV Sodium Chloride 1,000 ml @ 100 mls/hr Q10H IV ; Start 07/01/18 at 17:00; Status UNV Labetalol HCl (Labetalol) 10 mg Q4 PRN IV sbp>160; Start 07/01/18 at 17:00; Status UNV Coded Allergies: No Known Allergy (Unverified , 07/01/18) Social History Smoking Status: Former smoker Exam/Review of Systems Vital Signs Vitals Vital Signs Date Temp Pulse Resp B/P (MAP) Pulse Ox O2 O2 Flow FiO2 Time Delivery Rate 07/01/18 100.5 98 17 156/103 100 Room Air 15:37 (120) KJ MARINELLI Jul 01, 2018 17:06
[2018-07-01] MEDS: HYDROCODONE/APAP (5/325) TAB PO PRN (19:03)
[2018-07-01 19:19] VITALS: Ht 170.2 cm; Wt 105.9 kg
[2018-07-01] MEDS: SOD CHLORIDE 0.9% 1,000 ML IV SCH (19:27)
[2018-07-01] MEDS: LEVOFLOXACIN 750MG/D5W (PMX) 150 ML IVPB SCH (19:27)
[2018-07-01 20:00] VITALS: BP 156/94; PULSE 98; RESP 19
[2018-07-01 21:25] VITALS: PULSE 102
[2018-07-02] VITALS (10 sets, daily range): BP systolic 134–186; BP diastolic 67–97; PULSE 81–116; RESP 18–19
[2018-07-02] MEDS: ACETAMINOPHEN 325 MG TAB PO PRN ×3 (00:34→23:36)
[2018-07-02] MEDS: HYDROCODONE/APAP (5/325) TAB PO PRN ×3 (02:20→19:01)
[2018-07-02] MEDS: SOD CHLORIDE 0.9% 1,000 ML IV SCH ×4 (03:00→23:37)
--- NOTE | 2018-07-02 12:48 | PN ---
Date/Time of Note Date/Time of Note DATE: 07/02/18 TIME: 12:45 Objective Vitals Vital Signs Date Temp Pulse Resp B/P (MAP) Pulse Ox O2 O2 Flow FiO2 Time Delivery Rate 07/02/18 98.1 81 19 165/88 96 Nasal 2.0 11:33 (113) Cannula Intake and Output 07/01/18 07/01/18 07/02/18 1515:00 23:00 07:00 IntakeIntake Total 150 ml 900 ml BalanceBalance 150 ml 900 ml Results Result Diagram: 07/02/18 0559 07/02/18 0559 Medications Medications Current Medications IV Flush (NS 3 ml) 3 ml PER PROTOCOL IV ; Start 07/01/18 at 16:30 Ondansetron HCl (Zofran Inj) 4 mg Q6H PRN IV NAUSEA/VOMITING; Start 07/01/18 at 16:30 Acetaminophen (Tylenol Tab) 650 mg Q6H PRN PO .PAIN 1-3 OR TEMP Last administered on 07/02/18at 00:34; Admin Dose 650 MG; Start 07/01/18 at 16:30 Acetaminophen/ Hydrocodone Bitart ([place] (5/325)) 1 tab Q6H PRN PO .PAIN 4-6 Last administered on 07/02/18at 09:38; Admin Dose 1 TAB; Start 07/01/18 at 16:30 Levofloxacin/ Dextrose 150 ml @ 100 mls/hr Q24H IVPB Last administered on 07/01/18at 19:27; Admin Dose 100 MLS/HR; Start 07/01/18 at 17:00 Sodium Chloride 1,000 ml @ 100 mls/hr Q10H IV Last administered on 07/02/18at 08:02; Admin Dose 100 MLS/HR; Start 07/01/18 at 17:00 Labetalol HCl (Labetalol) 10 mg Q4H PRN IV sbp>160 Last administered on 07/02/18at 08:00; Admin Dose 10 MG; Start 07/01/18 at 17:00 Lisinopril (Zestril) 10 mg DAILY PO ; Start 07/02/18 at 12:00 VTE Prophylaxis Risk score (from Nsg)>0 risk: 2 SCD applied (from Nsg): Yes Lines/Catheters IV Catheter Type: Bartholomew in Place: No Assessment/Plan Hospital Course Subjective Patient's abdominal, suprapubic, flank pain has improved significantly however patient still complaining of headache and fever. Objective Physical exam General: Patient is laying in bed and answers questions appropriately Mentation: Patient is alert and oriented 4, Head: Normocephalic atraumatic Eyes: EOMI, pupils reactive to light Neck: Supple, nontender, midline Respiratory: Clear to auscultation bilaterally Cardiovascular: regular rate, no obvious murmurs Gastrointestinal: Mildly tender to palpation, in the suprapubic area and lower quadrants to palpation, bowel sounds heard. Neurological: Moves all extremities spontaneously Musculoskeletal: Mild right flank pain as well as mild left flank pain Assessment and plan Urinary tract infection with possible pyelonephritis -UA in-house is not conclusive for UTI does show trace leukocytes however, patient was taking an oral antibiotic in the outpatient setting from an old prescription and therefore may be changing the results of the UA -Patient symptoms of suprapubic pain, urinary retention and other clinical symptoms point towards UTI cause with possible pyelonephritis -IV Levaquin -Normal saline Sepsis -Secondary to likely UTI and possible pyelonephritis -IV fluids -Blood cultures -Lactic acid 1.5 -IV antibiotic Abdominal pain with flank pain, improving significantly -Accompanied with flank pain as well, likely secondary to above UTI possible pyelonephritis -CT abdomen pelvis negative for acute intra-abdominal issues, may be sequelae from UTI and possible pyelonephritis -Patient does have an enlarged liver however does not show any issues with liver labs, hepatitis panel negative so far -Renal panel not showing any acute issues -Abdominal pain is improving, continue current treatment Urinary retention -Likely secondary to above UTI -Bartholomew catheter removed as patient is now able to urinate Acute encephalopathy -Likely secondary to above UTI and sepsis -Patient now alert and oriented x4 -CT head negative -MRI brain noted for no acute issues -Ammonia within normal limits -Patient denies taking any drugs or alcohol, however cannabinoids is positive in his urine tox screen -Neurology consulted Questionable diabetes and high cholesterol -Patient states that he has been told that he has issues with this in the past, A1c shows prediabetes, lipid panel is only remarkable for mildly elevated triglycerides Peripheral neuropathy -Patient has had this for many years, was told this was a complication from his diabetes, A1c is prediabetic Chronic headaches -Patient has been struggling with this for many years, however patient's blood pressure is elevated, possibly blood pressure related however will need to control blood pressure and pain before attributing headaches to blood pressure -We will monitor for now -MRI showing no acute issues -CT head negative for acute issues -Neurology consulted for chronic headaches Aspirin use -Patient unknown why he started a baby aspirin, no history of [place] or CVA Disposition -Patient's presentation is mildly abnormal however the clinical picture does point towards UTI versus pyelonephritis causing his altered mental status. Continue IV fluids and antibiotics for now -Follow with neurology recommendations KJ MARINELLI Jul 02, 2018 12:48
[2018-07-02] MEDS: LISINOPRIL 10 MG TAB PO SCH (14:19)
--- NOTE | 2018-07-02 14:39 | CONS ---
Assessment/Plan Assessment/Plan Hospital Course 48 yo M with multiple comorbidities who presents for evaluation of dysuria and fevers. He additionally reports a severe headache... for which neurology is consulted. The clinical picture could be consistent with recurrent migraines. Meningitis is less likely.. MRI brain is reassuringly without acute intracranial pathology. P: Trial of Toradol iv, then oral Naproxen (w/ protonix) Continued medical management and other supportive care per primary Will follow clinically, to recommend neurologic studies, as necessary Consultation Date/Type/Reason Admit Date/Time Type of Consult Neurology Reason for Consultation ams; headache Requesting Provider: KJ MARINELLI Date/Time of Note DATE: 07/02/18 TIME: 14:39 Hx of Present Illness 48 yo M with hx of HLD, DM, who presented to the ED with ams, headache, and dysuria. History was obtained from pt and chart review. The pt today additionally endorsed headache that has been waxing and waning since Sunday, chills, and generalized weakness. He described the headache as originating in the L front of his head, is throbbing, and radiates to the back of his head. He states that it is a 10/10 at worst and is unrelieved with medications. He states that accompanying sx include light sensitivity and green dots that enter his visual field. He states that he has a 5 year hx of headaches. It is additionally elsewhere noted: Hospital Course Patient is a male with a questionable past medical history of diabetes and elevated cholesterol who presents to [facility] brought in by family for altered mental status. According to EMS they arrived after 911 was called by patient's and patient was find altered and slightly arousable. Patient did not receive any new medical attention however when they placed a nasal trumpet in the ED, patient spontaneously woke up and was alert and oriented x4. Patient currently right now is able to tell me entire story however he does not know what he was altered for the past 2 days. Patient was able to say that for the past 3-4 days he has had suprapubic pain as well as difficulty urinating. Patient states that he would urinate a little bit and then it would clamp up. Patient states that this is never happened before. Patient states that at this time there was also a mild to moderate umbilical abdominal pain as well as a right flank and left flank pain but worse on the right. Currently patient states that this pain is still there however after getting a Bartholomew catheter placed in the ED patient's suprapubic pain has slightly resolved. Of note patient did take an old prescription of amoxicillin for the past day. Patient states that he has chronic headaches for many years and he has some lower extremity neuropathy that is also chronic however he is not taking any medications for his questionable diabetes or high cholesterol. Patient denies chest pain, shortness of breath, dizziness, blurry vision, nausea, vomiting. negative unless noted otherwise in HPI Exam/Review of Systems Exam Vitals Vital Signs Date Temp Pulse Resp B/P (MAP) Pulse Ox O2 O2 Flow FiO2 Time Delivery Rate 07/02/18 99.8 14:23 07/02/18 85 12:01 07/02/18 165/88 96 Nasal 2.0 11:33 (113) Cannula Intake and Output 07/01/18 07/01/18 07/02/18 1515:00 23:00 07:00 IntakeIntake Total 150 ml 900 ml BalanceBalance 150 ml 900 ml Exam PE: Gen Appearance: No Apparent Distress HEENT: Normocephalic Cardiovascular: Regular rate Lungs: Clear bilaterally Abdomen: Soft Extremities: Dry NE: The patient was alert and oriented. Language was normal. Fund of knowledge was normal. Pupils were equal and reactive to light. There was no afferent pupillary defect. Visual thomas were normal. Funduscopic examination was limited. Extra-ocular movements were full. Ptosis was absent. There was no nystagmus. Facial sensation was normal. Face was symmetric with normal strength. Hearing was intact. Palate movements were normal. Neck strength was normal, without nuchal rigidity or neck pain. There was normal tongue bulk and speed of movement. Tone was normal. Muscle bulk was normal. I did not see fasciculations. Arms and legs were strong to confrontation. Vibration sensation was normal. Temperature and pinprick sensation was normal. Rapid alternating movements were normal. There was no dysmetria. There was no intention tremor. Gait was deferred due to bedrest. Arm and leg reflexes were 2+ and symmetric. Lala's sign was absent. Plantar responses were flexor. Results Result Diagram: 07/02/18 0559 07/02/18 0559 Results 24hrs Laboratory Tests Test 07/01/18 15:22 07/01/18 15:41 07/01/18 16:55 07/01/18 17:21 Urine Color YELLOW Urine Clarity CLEAR Urine pH 7.0 Urine Specific 1.016 [place] Urine Ketones NEGATIVE Urine Nitrite NEGATIVE Urine Bilirubin NEGATIVE Urine Urobilinogen NEGATIVE Urine Leukocyte TRACE A Esterase Urine Microscopic 1 RBC Urine Microscopic 4 WBC Urine Hemoglobin 1+ H Urine Glucose NEGATIVE Urine Total Protein 2+ H Urine Opiates Negative Screen Urine Barbiturates Negative Urine Amphetamines Negative Screen Urine Negative Benzodiazepines Screen Urine Cocaine Negative Screen Urine Cannabinoids Positive Bedside Urine pH 7.0 (LAB) Bedside Urine 3+ H Protein (LAB) Bedside Urine Negative Glucose (UA) Bedside Urine Negative Ketones (LAB) Bedside Urine Blood Trace-lysed H Bedside Urine Negative Nitrite (LAB) Bedside Urine Trace H Leukocyte Esterase (L Lactic Acid Level 1.5 Ammonia 24 Hepatitis B Surface NEGATIVE Antigen Hepatitis B Core NEGATIVE Total Antibody Hepatitis C NEGATIVE Antibody Test 07/01/18 21:41 07/02/18 05:59 07/02/18 07:55 Bedside Glucose 114 143 White Blood Count 8.9 # Red Blood Count 5.72 Hemoglobin 15.4 Hematocrit 45.9 Mean Corpuscular 80.2 L Volume Mean Corpuscular 26.9 L Hemoglobin Mean Corpuscular 33.6 Hemoglobin Concent Red Cell 13.2 Distribution Width Platelet Count 280 Mean Platelet 9.8 Volume Immature 0.700 H Granulocytes % Neutrophils % 85.9 H Lymphocytes % 6.9 L Monocytes % 5.5 Eosinophils % 0.2 Basophils % 0.8 Nucleated Red Blood 0.0 Cells % Immature 0.060 H Granulocytes # Neutrophils # 7.7 H Lymphocytes # 0.6 L Monocytes # 0.5 Eosinophils # 0.0 Basophils # 0.1 Nucleated Red Blood 0.0 Cells # Sodium Level 138 Potassium Level 3.9 Chloride Level 102 Carbon Dioxide 27 Level Anion Gap 9 Blood Urea Nitrogen 12 Creatinine 0.73 Est Glomerular > 60 Filtrat Rate mL/min Glucose Level 135 Hemoglobin A1c 6.3 H Calcium Level 8.8 Magnesium Level 1.9 Total Bilirubin 0.6 Direct Bilirubin 0.00 Indirect Bilirubin 0.6 Aspartate Amino 20 Transf (AST/SGOT) Alanine 25 Aminotransferase (A LT/SGPT) Alkaline 105 Phosphatase Total Protein 7.5 Albumin 4.0 Globulin 3.50 H Albumin/Globulin 1.14 Ratio Triglycerides Level 162 H Cholesterol Level 183 LDL Cholesterol, 117 Calculated HDL Cholesterol 34 Cholesterol/HDL 5.3 Ratio Thyroid Stimulating Pending Hormone (TSH) Medications Medication Current Medications IV Flush (NS 3 ml) 3 ml PER PROTOCOL IV ; Start 07/01/18 at 16:30 Ondansetron HCl (Zofran Inj) 4 mg Q6H PRN IV NAUSEA/VOMITING; Start 07/01/18 at 16:30 Acetaminophen (Tylenol Tab) 650 mg Q6H PRN PO .PAIN 1-3 OR TEMP Last administered on 07/02/18at 14:22; Admin Dose 650 MG; Start 07/01/18 at 16:30 Acetaminophen/ Hydrocodone Bitart ([place] (5/325)) 1 tab Q6H PRN PO .PAIN 4-6 Last administered on 07/02/18at 09:38; Admin Dose 1 TAB; Start 07/01/18 at 16:30 Levofloxacin/ Dextrose 150 ml @ 100 mls/hr Q24H IVPB Last administered on 07/01/18at 19:27; Admin Dose 100 MLS/HR; Start 07/01/18 at 17:00 Sodium Chloride 1,000 ml @ 100 mls/hr Q10H IV Last administered on 07/02/18at 08:02; Admin Dose 100 MLS/HR; Start 07/01/18 at 17:00 Labetalol HCl (Labetalol) 10 mg Q4H PRN IV sbp>160 Last administered on at 08:00; Admin Dose 10 MG; Start 07/01/18 at 17:00 Lisinopril (Zestril) 10 mg DAILY PO Last administered on 07/02/18at 14:19; Admin Dose 10 MG; Start 07/02/18 at 12:00 Past Medical History reviewed Home Meds Active Scripts Ibuprofen* (Ibuprofen*) 800 Mg Tablet, 800 MG PO Q8, #30 TAB Prov:JEANNE ASHTON MD 03/28/17 Prednisone* (Prednisone*) 20 Mg Tab, 60 MG PO DAILY for 5 Days, TAB Prov:JEANNE ASHTON MD 03/28/17 Albuterol Sulfate* (Proair HFA*) 8.5 Gm Hfa.aer.ad, 2 PUFF INH Q6H PRN for WHEEZING AND SOB, #1 INHALER Prov:JEANNE ASHTON MD 03/28/17 Azithromycin* (Zithromax*) 250 Mg Tablet, 250 MG PO .ZPACK DIRECTED, #6 TAB TAKE 500 MG (2 TABS) THE FIRST DAY THEN 250 MG (1 TAB) DAYS 2-5 Prov:JEANNE ASHTON MD 03/28/17 Oseltamivir Phosphate* (Tamiflu*) 75 Mg Capsule, 75 MG PO BID for 5 Days, CAP Prov:JEANNE ASHTON MD 03/28/17 Ibuprofen* (Motrin*) 400 Mg Tab, 400 MG PO Q6, #30 TAB Prov:IKE,CHRISTINA 12/28/16 Dicloxacillin Sodium (Dynapen) 500 Mg Cap, 500 MG PO Q6 for 7 Days, #28 CAP Prov:IKE,CHRISTINA 12/28/16 Hydrochlorothiazide* (Hydrochlorothiazide*) 25 Mg Tab, 50 MG PO DAILY, #30 TAB Prov:KJ XAVIER MD 05/07/16 Ibuprofen* (Ibuprofen*) 600 Mg Tablet, 600 MG PO Q8 for PAIN AND/OR INFLAMMATION, #30 TAB Prov:KJ XAVIER MD 05/07/16 Ibuprofen* (Motrin*) 600 Mg Tab, 600 MG PO Q6, #30 TAB Prov:LAURA PITTMAN PA-C 10/25/15 Azithromycin* (Zithromax*) 250 Mg Tablet, 250 MG PO .ZPACK DIRECTED, #6 TAB TAKE 500 MG (2 TABS) THE FIRST DAY THEN 250 MG (1 TAB) DAYS 2-5 Prov:LAURA PITTMAN PA-C 10/25/15 Albuterol Sulfate* (Proair HFA*) 8.5 Gm Hfa.aer.ad, 2 PUFF INH Q4, #1 INHALER Prov:LAURA PITTMAN PA-C 10/25/15 Reported Medications Amoxicillin* (Amoxil*) 500 Mg Tablet, 500 MG PO Q8, TAB 07/01/18 Aspirin* (Aspirin* Chew) 81 Mg Tab.chew, 81 MG PO DAILY, TAB.CHEW 07/01/18 Medications Current Medications IV Flush (NS 3 ml) 3 ml PER PROTOCOL IV ; Start 07/01/18 at 16:30 Ondansetron HCl (Zofran Inj) 4 mg Q6H PRN IV NAUSEA/VOMITING; Start 07/01/18 at 16:30 Acetaminophen (Tylenol Tab) 650 mg Q6H PRN PO .PAIN 1-3 OR TEMP Last administered on 07/02/18 14:22; Admin Dose 650 MG; Start 07/01/18 at 16:30 Acetaminophen/ Hydrocodone Bitart ([place] (5/325)) 1 tab Q6H PRN PO .PAIN 4-6 Last administered on 07/02/18 09:38; Admin Dose 1 TAB; Start 07/01/18 at 16:30 Levofloxacin/ Dextrose 150 ml @ 100 mls/hr Q24H IVPB Last administered on 07/01/18 19:27; Admin Dose 100 MLS/HR; Start 07/01/18 at 17:00 Sodium Chloride 1,000 ml @ 100 mls/hr Q10H IV Last administered on 07/02/18 08:02; Admin Dose 100 MLS/HR; Start 07/01/18 at 17:00 Labetalol HCl (Labetalol) 10 mg Q4H PRN IV sbp>160 Last administered on 07/02/18 08:00; Admin Dose 10 MG; Start 07/01/18 at 17:00 Lisinopril (Zestril) 10 mg DAILY PO Last administered on 07/02/18 14:19; Admin Dose 10 MG; Start 07/02/18 at 12:00 Allergies: Coded Allergies: No Known Allergy (Unverified , 12/02/14) Past Surgical History reviewed Social History reviewed Smoking Status: Never smoker JERALD CORREA NP Jul 02, 2018 14:39 CHINYERE HWANG Jul 02, 2018 17:41
[2018-07-02] MEDS ORDERED: KETOROLAC 30 MG INJ IV STA (14:56)
[2018-07-02] MEDS: LEVOFLOXACIN 750MG/D5W (PMX) 150 ML IVPB SCH (17:05)
[2018-07-02] MEDS: NAPROXEN 250 MG TAB PO SCH (21:21)
[2018-07-03] VITALS (9 sets, daily range): BP systolic 118–152; BP diastolic 76–96; PULSE 71–91; RESP 18–19
[2018-07-03] MEDS: PANTOPRAZOLE (EC) 40 MG TAB PO SCH (05:44)
[2018-07-03] MEDS: ACETAMINOPHEN 325 MG TAB PO PRN (08:43)
[2018-07-03] MEDS: LISINOPRIL 10 MG TAB PO SCH (08:43)
[2018-07-03] MEDS: NAPROXEN 250 MG TAB PO SCH ×2 (08:43→21:26)
[2018-07-03] MEDS: SOD CHLORIDE 0.9% 1,000 ML IV SCH ×2 (08:55→14:20)
[2018-07-03] MEDS: HYDROCODONE/APAP (5/325) TAB PO PRN ×3 (11:11→23:56)
--- NOTE | 2018-07-03 15:23 | CONS ---
Assessment/Plan Assessment/Plan Hospital Course 48 yo M with multiple comorbidities who presents for evaluation of dysuria and fevers. He additionally reports a severe headache... for which neurology is consulted. The clinical picture could be consistent with recurrent migraines. Meningitis is less likely.. MRI brain is reassuringly without acute intracranial pathology. P: Cont trial of oral Naproxen BID (w/ protonix) Continued medical management and other supportive care per primary Will follow clinically, to recommend neurologic studies, as necessary Consultation Date/Type/Reason Admit Date/Time Jul 01, 2018 at 16:26 Type of Consult Neurology Reason for Consultation ams; headache Requesting Provider: KJ MARINELLI Date/Time of Note DATE: 07/03/18 TIME: 15:22 24 HR Interval Summary Free Text/Dictation Continues acute care. Pt states that his headache has significantly improved today. Exam Vital Signs Vitals Vital Signs Date Temp Pulse Resp B/P (MAP) Pulse Ox O2 O2 Flow FiO2 Time Delivery Rate 07/03/18 80 12:14 07/03/18 98.5 18 152/89 95 12:11 (110) 07/02/18 Nasal 2.0 15:09 Cannula Intake and Output 07/02/18 07/02/18 07/03/18 1515:00 23:00 07:00 IntakeIntake Total 2000 ml 3000 ml 1250 ml BalanceBalance 2000 ml 3000 ml 1250 ml Exam PE: Gen Appearance: No Apparent Distress HEENT: Normocephalic Cardiovascular: Regular rate Lungs: Clear bilaterally Abdomen: Soft Extremities: Dry NE: The patient was alert and oriented. Language was normal. Fund of knowledge was normal. Pupils were equal and reactive to light. There was no afferent pupillary defect. Visual thomas were normal. Funduscopic examination was limited. Extra-ocular movements were full. Ptosis was absent. There was no nystagmus. Facial sensation was normal. Face was symmetric with normal strength. Hearing was intact. Palate movements were normal. Neck strength was normal, without nuchal rigidity or neck pain. There was normal tongue bulk and speed of movement. Tone was normal. Muscle bulk was normal. I did not see fasciculations. Arms and legs were strong to confrontation. Vibration sensation was normal. Temperature and pinprick sensation was normal. Rapid alternating movements were normal. There was no dysmetria. There was no intention tremor. Gait was deferred due to bedrest. Arm and leg reflexes were 2+ and symmetric. Lala's sign was absent. Plantar responses were flexor. JERALD CORREA NP Jul 03, 2018 15:23
--- NOTE | 2018-07-03 16:03 | PN ---
Date/Time of Note Date/Time of Note DATE: 07/03/18 TIME: 16:01 Objective Vitals Vital Signs Date Temp Pulse Resp B/P (MAP) Pulse Ox O2 O2 Flow FiO2 Time Delivery Rate 07/03/18 98.2 72 19 132/77 94 15:46 (95) 07/02/18 Nasal 2.0 15:09 Cannula Intake and Output 07/02/18 07/02/18 07/03/18 1515:00 23:00 07:00 IntakeIntake Total 2000 ml 3000 ml 1250 ml BalanceBalance 2000 ml 3000 ml 1250 ml Results Result Diagram: 07/03/18 0609 07/03/18 0609 Medications Medications Current Medications IV Flush (NS 3 ml) 3 ml PER PROTOCOL IV ; Start 07/01/18 at 16:30 Ondansetron HCl (Zofran Inj) 4 mg Q6H PRN IV NAUSEA/VOMITING; Start 07/01/18 at 16:30 Acetaminophen (Tylenol Tab) 650 mg Q6H PRN PO .PAIN 1-3 OR TEMP Last administered on 07/03/18 08:43; Admin Dose 650 MG; Start 07/01/18 at 16:30 Acetaminophen/ Hydrocodone Bitart ([place] (5/325)) 1 tab Q6H PRN PO .PAIN 4-6 Last administered on 07/03/18 11:11; Admin Dose 1 TAB; Start 07/01/18 at 16:30 Levofloxacin/ Dextrose 150 ml @ 100 mls/hr Q24H IVPB Last administered on 07/02/18 17:05; Admin Dose 100 MLS/HR; Start 07/01/18 at 17:00 Sodium Chloride 1,000 ml @ 100 mls/hr Q10H IV Last administered on 07/03/18 14:20; Admin Dose 100 MLS/HR; Start 07/01/18 at 17:00 Labetalol HCl (Labetalol) 10 mg Q4H PRN IV sbp>160 Last administered on 07/02/18 08:00; Admin Dose 10 MG; Start 07/01/18 at 17:00 Lisinopril (Zestril) 10 mg DAILY PO Last administered on 07/03/18 08:43; Admin Dose 10 MG; Start 07/02/18 at 12:00 Naproxen (Naprosyn) 250 mg BID PO Last administered on 07/03/18at 08:43; Admin Dose 250 MG; Start 07/02/18 at 21:00 Pantoprazole (Protonix Tab) 40 mg DAILY@06 PO Last administered on 07/03/18at 05:44; Admin Dose 40 MG; Start 07/03/18 at 06:00 VTE Prophylaxis Risk score (from [facility] [place] risk: 2 SCD applied (from [facility] [place] Yes Lines/Catheters IV Catheter Type: Bartholomew in Place: No Assessment/Plan Hospital Course Subjective Patient's abdominal, suprapubic, flank pain continues to improve daily, still with mild to moderate headache Objective Physical exam General: Patient is laying in bed and answers questions appropriately Mentation: Patient is alert and oriented 4, Head: Normocephalic atraumatic Eyes: EOMI, pupils reactive to light Neck: Supple, nontender, midline Respiratory: Clear to auscultation bilaterally Cardiovascular: regular rate, no obvious murmurs Gastrointestinal: Mildly tender to palpation, in the suprapubic area and lower quadrants to palpation, bowel sounds heard. Neurological: Moves all extremities spontaneously Musculoskeletal: Mild right flank pain as well as mild left flank pain Assessment and plan Urinary tract infection with possible pyelonephritis -UA in-house is not conclusive for UTI does show trace leukocytes however, patient was taking an oral antibiotic in the outpatient setting from an old prescription and therefore may be changing the results of the UA -Patient symptoms of suprapubic pain, urinary retention and other clinical symptoms point towards UTI cause with possible pyelonephritis -IV Levaquin changed to p.o. today -Normal saline Sepsis, resolving -Secondary to likely UTI and possible pyelonephritis -IV fluids -Blood cultures -Lactic acid 1.5 -IV antibiotic Abdominal pain with flank pain, improving significantly -Accompanied with flank pain as well, likely secondary to above UTI possible pyelonephritis -CT abdomen pelvis negative for acute intra-abdominal issues, may be sequelae from UTI and possible pyelonephritis -Patient does have an enlarged liver however does not show any issues with liver labs, hepatitis panel negative -Renal panel not showing any acute issues -Abdominal pain is improving, continue current treatment Urinary retention -Likely secondary to above UTI -Bartholomew catheter removed as patient is now able to urinate Acute encephalopathy -Likely secondary to above UTI and sepsis -Patient now alert and oriented x4 -CT head negative -MRI brain noted for no acute issues -Ammonia within normal limits -Patient denies taking any drugs or alcohol, however cannabinoids is positive in his urine tox screen -Neurology consulted Questionable diabetes and high cholesterol -Patient states that he has been told that he has issues with this in the past, A1c shows prediabetes, lipid panel is only remarkable for mildly elevated tr iglycerides Peripheral neuropathy -Patient has had this for many years, was told this was a complication from his diabetes, A1c is prediabetic Chronic headaches -Patient has been struggling with this for many years, however patient's blood pressure is elevated, possibly blood pressure related however will need to control blood pressure and pain before attributing headaches to blood pressure -We will monitor for now -MRI showing no acute issues -CT head negative for acute issues -Neurology consulted for chronic headaches, naproxen trial Aspirin use -Patient unknown why he started a baby aspirin, no history of [place] or CVA Disposition -If patient is afebrile for 24 more hours, will consider discharge tomorrow. -Follow with neurology recommendations KJ MARINELLI Jul 03, 2018 16:03
[2018-07-03] MEDS: LEVOFLOXACIN 750 MG TABLET PO SCH (17:50)
[2018-07-04] VITALS: BP 135/84; PULSE 79; PULSE 81; RESP 19
[2018-07-04 04:00] VITALS: BP 138/90; PULSE 68; PULSE 70; RESP 18
[2018-07-04] MEDS: PANTOPRAZOLE (EC) 40 MG TAB PO SCH (06:07)
[2018-07-04 07:29] VITALS: BP 139/83; PULSE 67; RESP 19
[2018-07-04 08:00] VITALS: PULSE 70
[2018-07-04] MEDS: HYDROCODONE/APAP (5/325) TAB PO PRN (08:24)
[2018-07-04] MEDS: NAPROXEN 250 MG TAB PO SCH (08:25)
[2018-07-04] MEDS: LEVOFLOXACIN 750 MG TABLET PO SCH (08:25)
[2018-07-04] MEDS: LISINOPRIL 10 MG TAB PO SCH (08:26)
[2018-07-04] MEDS ORDERED: LEVO750T25 PO (10:34)
[2018-07-04] MEDS ORDERED: LISI10TA2 PO (10:34)
--- NOTE | 2018-07-04 10:37 | PDOCDIS ---
Discharge Instructions CONDITION [id number] Patient Condition: [id number] Stable FOLLOW UP/APPOINTMENTS Follow-up Plan 1. Please follow-up with your primary care doctor as soon as possible in order to treat your long-standing hypertension and chronic headaches 2. Please take Tylenol as needed, do not exceed maximum dose on the bottle, please see your primary care provider as soon as possible for your chronic headaches 3. Please take all antibiotics prescribed KJ MARINELLI Jul 04, 2018 10:37
--- NOTE | 2018-07-04 10:41 | DS ---
Date/Time of Note Date/Time of Note DATE: 07/04/18 TIME: 10:41 Discharge Summary Admission/Discharge Info Admit Date/Time Jul 01, 2018 at 16:26 Discharge Date/Time Patient Condition: Stable Hospital Course Patient is a male with past medical history significant for multiple years of chronic headaches who presented to [facility] with encephalopathy and UTI. Patient was diagnosed with highly likely pyelonephritis and was given IV antibiotics. Patient has now remained afebrile and not septic for 48 hours and is doing well on current antibiotic. Patient will be discharged to finish his course of fluoroquinolone antibiotic. Patient had multiple scans including CT and MRI of the brain in order to assess for altered mental status however it is highly likely that patient was septic from his UTI. Neurology also saw patient and deemed the patient to be started on conservative measures and [id number] medications of naproxen,. Patient still does have headaches but are relieved with medications. It was explained to the patient in Romanian that he needs to follow-up with his primary care doctor in order to take care of his long withstanding headaches that have been going on for years. Otherwise patient with was instructed to continue Tylenol as needed with directions on the bottle. Currently patient's headache is mild however he does appear to have this every day. Patient understands that the headache continues to be excessive to return to the ED. Patient will also be discharged with appropriate blood pressure medication. Unknown reason why patient started a baby aspirin, no history of CVA or CT, it was decided that patient should follow-up with his primary care provider in order to assess if a baby aspirin should be continued or not. Discharge diagnosis Pyelonephritis UTI Abdominal pain, resolved Flank pain, resolved Urinary retention, resolved Acute encephalopathy, resolved Peripheral neuropathy, chronic Headaches, chronic Home Meds Active Scripts Lisinopril* (Lisinopril*) 10 Mg Tablet, 10 MG PO DAILY for 30 Days, #30 TAB 1 Refill Prov:KJ MARINELLI 07/04/18 Levofloxacin* (Levaquin*) 750 Mg Tablet, 750 MG PO DAILY for 5 Days, #5 TAB Prov:KJ MARINELLI 07/04/18 Discontinued Reported Medications Amoxicillin* (Amoxil*) 500 Mg Tablet, 500 MG PO Q8, TAB 07/01/18 Aspirin* (Aspirin* Chew) 81 Mg Tab.chew, 81 MG PO DAILY, TAB.CHEW 07/01/18 Discontinued Scripts Ibuprofen* (Ibuprofen*) 800 Mg Tablet, 800 MG PO Q8, #30 TAB Prov:JEANNE ASHTON MD 03/28/17 Prednisone* (Prednisone*) 20 Mg Tab, 60 MG PO DAILY for 5 Days, TAB Prov:JEANNE ASHTON MD 03/28/17 Albuterol Sulfate* (Proair HFA*) 8.5 Gm Hfa.aer.ad, 2 PUFF INH Q6H PRN for WHEEZING AND SOB, #1 INHALER Prov:JEANNE ASHTON MD 03/28/17 Azithromycin* (Zithromax*) 250 Mg Tablet, 250 MG PO .ZPACK DIRECTED, #6 TAB TAKE 500 MG (2 TABS) THE FIRST DAY THEN 250 MG (1 TAB) DAYS 2-5 Prov:JEANNE ASHTON MD 03/28/17 Oseltamivir Phosphate* (Tamiflu*) 75 Mg Capsule, 75 MG PO BID for 5 Days, CAP Prov:JEANNE ASHTON MD 03/28/17 Ibuprofen* (Motrin*) 400 Mg Tab, 400 MG PO Q6, #30 TAB Prov:IKE,CHRISTINA 12/28/16 Dicloxacillin Sodium (Dynapen) 500 Mg Cap, 500 MG PO Q6 for 7 Days, #28 CAP Prov:IKE,CHRISTINA 12/28/16 Hydrochlorothiazide* (Hydrochlorothiazide*) 25 Mg Tab, 50 MG PO DAILY, #30 TAB Prov:KJ XAVIER MD 05/07/16 Ibuprofen* (Ibuprofen*) 600 Mg Tablet, 600 MG PO Q8 for PAIN AND/OR INFLAMMATION, #30 TAB Prov:KJ XAVIER MD 05/07/16 Ibuprofen* (Motrin*) 600 Mg Tab, 600 MG PO Q6, #30 TAB Prov:LAURA PITTMAN PA-C 10/25/15 Azithromycin* (Zithromax*) 250 Mg Tablet, 250 MG PO .ZPACK DIRECTED, #6 TAB TAKE 500 MG (2 TABS) THE FIRST DAY THEN 250 MG (1 TAB) DAYS 2-5 Prov:LAURA PITTMAN PA-C 10/25/15 Albuterol Sulfate* (Proair HFA*) 8.5 Gm Hfa.aer.ad, 2 PUFF INH Q4, #1 INHALER Prov:LAURA PITTMAN PA-C 10/25/15 Follow-up Plan 1. Please follow-up with your primary care doctor as soon as possible in order to treat your long-standing hypertension and chronic headaches 2. Please take Tylenol as needed, do not exceed maximum dose on the bottle, please see your primary care provider as soon as possible for your chronic headaches 3. Please take all antibiotics prescribed Primary Care Provider Time spent on discharge: > 30 minutes Pending Labs Laboratory Tests Test 07/04/18 10:14 White Blood Count 4.5 10^3/ul (4.8-10.8) Red Blood Count 5.42 10^6/ul (4.70-6.10) Hemoglobin 14.5 g/dl (14.0-18.0) Hematocrit 43.6 % (42.0-52.0) Mean Corpuscular Volume 80.4 fl (82.0-101.0) Mean Corpuscular Hemoglobin 26.8 pg (29.0-33.0) Mean Corpuscular Hemoglobin Concent 33.3 g/dl (32.0-37.0) Red Cell Distribution Width 13.4 % (11.5-14.5) Platelet Count 293 10^3/UL (140-415) Mean Platelet Volume 9.8 fl (7.4-10.4) Immature Granulocytes % 0.200 % (0.001-0.429) Neutrophils % 49.6 % (39.0-77.0) Lymphocytes % 26.2 % (15.0-51.0) Monocytes % 12.9 % (0.0-11.0) Eosinophils % 9.3 % (0.0-7.0) Basophils % 1.8 % (0.0-2.0) Nucleated Red Blood Cells % 0.0 /100WBC (0.0-0.0) Immature Granulocytes # 0.010 10^3/ul (0.0-0.031) Neutrophils # 2.2 10^3/ul (1.6-7.5) Lymphocytes # 1.2 10^3/ul (0.8-2.9) Monocytes # 0.6 10^3/ul (0.3-0.9) Eosinophils # 0.4 10^3/ul (0.0-0.5) Basophils # 0.1 10^3/ul (0.0-0.1) Nucleated Red Blood Cells # 0.0 10^3/ul (0.0-0.0) KJ MARINELLI Jul 04, 2018 10:41
[2018-07-04 11:08] VITALS: BP 139/77; PULSE 77; RESP 19
[2018-07-04 12:00] VITALS: PULSE 74
--- NOTE | 2018-07-04 14:41 | CONS ---
Assessment/Plan Assessment/Plan Hospital Course 48 yo M with multiple comorbidities who presents for evaluation of dysuria and fevers. He additionally reports a severe headache... for which neurology is consulted. The clinical picture could be consistent with recurrent migraines. Meningitis is less likely.. MRI brain is reassuringly without acute intracranial pathology. P: Cont trial of oral Naproxen BID (w/ protonix) Continued medical management and other supportive care per primary Will follow clinically, to recommend neurologic studies, as necessary Consultation Date/Type/Reason Admit Date/Time Jul 01, 2018 at 16:26 Type of Consult Neurology Reason for Consultation ams; headache Requesting Provider: KJ MARINELLI Date/Time of Note DATE: 07/04/18 TIME: 14:41 24 HR Interval Summary Free Text/Dictation Continues acute care. Awaiting discharge today. Exam Vital Signs Vitals Vital Signs Date Temp Pulse Resp B/P (MAP) Pulse Ox O2 O2 Flow FiO2 Time Delivery Rate 07/04/18 74 12:00 07/04/18 97.4 19 139/77 96 11:08 (97) 07/02/18 Nasal 2.0 15:09 Cannula Intake and Output 07/03/18 07/03/18 07/04/18 1515:00 23:00 07:00 IntakeIntake Total 700 ml 200 ml 1200 ml BalanceBalance 700 ml 200 ml 1200 ml Exam PE: Gen Appearance: No Apparent Distress HEENT: Normocephalic Cardiovascular: Regular rate Lungs: Clear bilaterally Abdomen: Soft Extremities: Dry NE: The patient was alert and oriented. Language was normal. Fund of knowledge was normal. Pupils were equal and reactive to light. There was no afferent pupillary defect. Visual thomas were normal. Funduscopic examination was limited. Extra-ocular movements were full. Ptosis was absent. There was no nystagmus. Facial sensation was normal. Face was symmetric with normal strength. Hearing was intact. Palate movements were normal. Neck strength was normal, without nuchal rigidity or neck pain. There was normal tongue bulk and speed of movement. Tone was normal. Muscle bulk was normal. I did not see fasciculations. Arms and legs were strong to confrontation. Vibration sensation was normal. Temperature and pinprick sensation was normal. Rapid alternating movements were normal. There was no dysmetria. There was no intention tremor. Gait was deferred due to bedrest. Arm and leg reflexes were 2+ and symmetric. Lala's sign was absent. Plantar responses were flexor. JERALD CORREA NP Jul 04, 2018 14:41
== END 2018-07-04 13:50 | disposition home or self-care (01) | DRG 871 ==
LOC: E/R 14:10 → SUATTDRO 16:26 → MERGE 16:26 → TEL 16:26
PROVIDERS: ADMIT Internal Medicine; ATTEND Internal Medicine
DX: A41.9 Sepsis, unspecified organism (principal); G93.41 Metabolic encephalopathy; N39.0 Urinary tract infection, site not specified; G93.40 Encephalopathy, unspecified; N12 Tubulo-interstitial nephritis, not specified as acute or chronic; E11.42 Type 2 diabetes mellitus with diabetic polyneuropathy; R33.9 Retention of urine, unspecified; E78.00 Pure hypercholesterolemia, unspecified; E78.5 Hyperlipidemia, unspecified; I10 Essential (primary) hypertension; Z79.82 Long term (current) use of aspirin; R51 Headache
CPT/HCPCS: 36415; 70450; 70551; 71045; 74176; 76775; 80048; 80053; 80061; 80307; 81001; 81003; 82140; 82550; 82962; 83036; 83605; 83690; 83735; 84100; 84443; 84484; 85025; 85610; 85730; 86704; 86709; 86803; 87086; 87340; 93005; 96374; J1885; J1956; J2543; J7030